=== PATIENT | male | born 1950 | race Caucasian/White ===

== ENCOUNTER 2017-01-25 11:24 | Observation (INO) | payer MEDICARE, OTHER ==
[2017-01-19 16:42] LABS: BASOPHILS 0.4 %; BASOPHILS ABSOLUTE 0.03 10/3/uL (0.0-0.16); EOSINOPHILS 1.3 %; EOSINOPHILS ABSOLUTE 0.09 10/3/uL (0.0-0.53); HEMOGLOBIN 15.8 g/dL (13.6-17.8); IMMATURE GRANULOCYTES 0.3 %; IMMATURE GRANULOCYTES ABSOLUTE 0.02 10/3/uL (0.0-0.11); LYMPHOCYTES 34.4 %; LYMPHOCYTES ABSOLUTE 2.31 10/3/uL (0.67-4.30); MANUAL DIFF NO %; MEAN CORPUS HGB CONC 33.6 g/dL (32.0-36.0); MEAN CORPUSCULAR HEMOGLOB 30.4 pg (26.0-34.0); MEAN CORPUSCULAR VOLUME 90.6 fL (80-100); MEAN PLATELET VOLUME 9.7 fL (9.2-13.0); MONOCYTES 7.1 %; MONOCYTES ABSOLUTE 0.48 10/3/uL (0.21-1.20); NEUTROPHILS 56.5 %; NEUTROPHILS ABSOLUTE 3.79 10/3/uL (2.02-8.40); PLATELET COUNT 262 10/3/uL (150-400); RBC DISTRIBUTION WIDTH 12.9 % (12.0-16.0); RED CELL COUNT 5.19 10/6/uL (4.7-6.1); WHITE BLOOD CELLS 6.7 10/3/uL (4.5-10.5)
[2017-01-19 16:49] LABS: BUN (BLOOD UREA NITROGEN) 13 MG/DL (6-23); CALCIUM, SERUM 9.4 MG/DL (8.5-10.4); CHLORIDE, SERUM 105 MMOL/L (96-112); CREATININE 1.05 MG/DL (0.70-1.30); GFR AFRICAN AMERICAN 84 ML/MIN (>=60); GFR NON AFRICAN AMERICAN 73 ML/MIN (>=60); SODIUM, SERUM 141 MMOL/L (135-148)
[2017-01-19 16:50] LABS: CO2 (CARBON DIOXIDE) 31 MMOL/L (24-34); GLUCOSE, SERUM 94 MG/DL (60-99); POTASSIUM, SERUM 5.4 MMOL/L (3.5-5.3)
--- NOTE | ~2017-01-25 | CN ---
Consultation Report [address] [place]. [address] NAME: IRENE HACKETT JR : 46 STATUS : ADM IN PAT#: [id number] AGE: 66 ADM/REG DATE : 01/25/17 MR#: [id number] REPORT SERV DATE: 01/26/17 DICTATED BY: MELITA BUITRAGO DATE: 01/25/17 REPORT STATUS : Draft TRANSCRIBED BY: MODMaria Teresa DATE: 01/25/17 CONSULTATION DATE OF CONSULTATION: 01/25/2017 REASON FOR CONSULTATION: Consulted for blood pressure management and home medication. IDENTIFYING DATA: 1. PCP, Ramu Lujan M.D. 2. Case Finisher in the past, he states he has previously seen Dr. Warner, also Dr. Quesada, and Dr. Reinier Agudelo, who did a left heart catheterization April 2011. He no longer sees a rv service technician at present time. 3. GI, Chauncey Miller M.D. 4. Turn Down Worker, Titi Branch MD. HISTORY OF PRESENT ILLNESS: This is a pleasant 66-year-old male, who presents to Dr. Titi Branch for status post total thyroidectomy, parathyroid hormone testing intraoperatively with parathyroidectomy on 01/25/2017. The patient relates that he was cutting limbs and fell from a tree approximately a month ago, found himself in the ER as a result, had a CT scan, to which they found that he had thyroid nodules. The patient has a history of CVA with TIA in 2005 which he has no residuals. He has a history of hypertension, obstructive sleep apnea for which he uses CPAP, colon cancer in 2001, and a thyroid nodule for which he is status post a thyroidectomy. We have been consulted to help manage with his medications from home and blood pressure. The patient has noted very few medications, and he is having difficulty financially obtaining medications that are ordered. The patient's history was obtained through careful interview with the patient coupled with review of [employer] and [employer]. PAST MEDICAL HISTORY: 1. CVA/TIA in 2005. 2. Wears glasses. 3. Hypertension. 4. Obstructive sleep apnea on CPAP. 5. Arthritis. 6. Diverticulitis. 7. Polyps. 8. Colon cancer in 2001. 9. Enlarged prostate. 10.Depression. 11.Thyroid nodules. Consultation Report [address] [place]. [address] NAME: IRENE HACKETT JR : 46 STATUS : ADM IN PAT#: [id number] AGE: 66 ADM/REG DATE : 01/25/17 MR#: [id number] REPORT SERV DATE: 01/26/17 DICTATED BY: MELITA BUITRAGO DATE: 01/25/17 REPORT STATUS : Draft TRANSCRIBED BY: MODL DATE: 01/25/17 12.Elevated cholesterol. 13.States he has a previous problem with anesthesia with difficulty waking up. 14.Chest pain. HOME MEDICATION: 1. Benicar 20 mg p.o. every day at bedtime. 2. Pravachol 20 mg p.o. at bedtime. ALLERGIES: TO: 1. LIDOCAINE. 2. SIMVASTATIN. 3. PROCAINE. SOCIAL HISTORY: The patient is for 43 years, has three children, five grand children. Lives in a single-level home. No smoking. No alcohol or illicit drug use. FAMILY HISTORY: 1. Mother is in her 90s in an assisted living facility. She has dementia. 2. Brother had coronary artery disease and was status post CABG. 3. Father is , had throat cancer, was a heavy smoker and at age 5555 years old. 4. The patient has two brothers and three sisters. SURGICAL HISTORY: 1. Left arm fracture in the . 2. Fistulectomy 1997. 3. Shoulder and biceps tendon repair in February 2015 at [facility]. 4. Colonoscopy with polypectomy in 2001 and again colonoscopy in 2014. 5. L4-L5 fusion in 2012 at [facility]. 6. LHC/angio/LV-gram in April [address] Alxe Quesada was seeing him for cardiology at that time, with the procedure done by Dr. Reinier Agudelo, showed an EF of 60% with a normal test. REVIEW OF SYSTEMS: Review of systems are negative other than what is in HPI. The patient has no shortness of breath. No chest pain. No fever. No nausea or vomiting. No abdominal pain. Displays no confusion or agitation. PHYSICAL EXAMINATION: VITAL SIGNS: From today, blood pressure 159/84, respiratory rate 16, heart rate 93, temperature 97.5, O2 saturation 94% on 2 L nasal cannula. GENERAL: This is a very pleasant, 66-year-old male, who is resting in bed. He is in no acute distress. NEURO: His head is atraumatic. He is normocephalic. He is alert and oriented x3. His mood is pleasant and appropriate. NECK: Supple. Trachea is midline. No JVD noted. He has an ice pack to his mid neck at op Consultation Report [address] [place]. [address] NAME: IRENE HACKETT JR : 46 STATUS : ADM IN PAT#: [id number] AGE: 66 ADM/REG DATE : 01/25/17 MR#: [id number] REPORT SERV DATE: 01/26/17 DICTATED BY: MELITA BUITRAGO DATE: 01/25/17 REPORT STATUS : Draft TRANSCRIBED BY: RUPINDER DATE: 01/25/17 site area. EENT: His sclerae are nonicteric. Pupils are equal, reactive to light. Nares are patent. Mucous membranes are moist. Tongue is midline without deviation. Soft palate rises equally with phonation. CHEST: No pain with palpation. LUNGS: Clear to auscultation bilaterally. He has normal respiratory effort. He has no increased work of breathing with conversation. CARDIOVASCULAR: S1, S2. No obvious murmurs, rubs, or gallops. Rhythm per auscultation is regular rate at 92. ABDOMEN: Soft, nontender. Active bowel sounds. No palpable organomegaly. Last bowel movement was on 01/25/2017. EXTREMITIES: Normal distal pulses. No calf tenderness. No edema noted. He has SCDs in place for DVT prophylaxis. SKIN: Warm and dry. No unusual rashes or lesions. Normal color and turgor. PSYCH: The patient is pleasant, cooperative, appropriate mood and affect. SURGICAL WOUND SITE: Dressing at mid neck is clean, dry, and intact with ice pack in place. LABORATORY DATA: Sodium 140, potassium 3.8, chloride 106, BUN 11, creatinine 0.82, GFR 105, glucose 100, calcium 8.8. White blood cell 6.7, hemoglobin 15.8, hematocrit 47.0, and platelets 262. The patient had an EKG on 01/19/2017 that displayed normal sinus rhythm with a rate of 69 and a normal EKG. ASSESSMENT AND PLAN: 1. Hypertension. We are aware. The patient does have a history of TIAs and CVA in the past in 2005 but he displays no residual problems. He quit his medications for blood pressure approximately two months ago due to the cost. He states he lost his supplemental insurance. We will continue his Benicar while he is in hospitalization and add p.r.n. hydralazine for systolic blood pressure greater than 160. We will initiate telemetry overnight. 2. Obstructive sleep apnea. Aware. The patient does wear a CPAP at home at night. We will continue his home CPAP at bedtime. We will do continuous O2 saturation monitoring while he is in the hospital. 3. Hypercholesterolemia. Aware. We will continue his Pravachol which is his home medication while he is in hospitalization. 4. Labs; CMP, ionized calcium, PTH, calcium, magnesium, phosphorus, CBC in the a.m. We will initiate a Case Management consult regarding financial help obtaining home medications for blood pressure, and we will ask the a.m. team to re-evaluate medications that are more affordable to actually send the patient home on until he sees his PCP Dr. Ramu Lujan. The hospitalist group would like to thank you for this consultation, and please let us know if we can be of any further assistance. Consultation Report [address] [address] NAME: IRENE HACKETT JR : 46 STATUS : ADM IN [facility]#: [id number] AGE: 66 ADM/REG DATE : 01/25/17 MR#: [id number] REPORT SERV DATE: 01/26/17 DICTATED BY: MELITA BUITRAGO DATE: 01/25/17 REPORT STATUS : Draft TRANSCRIBED BY: RUPINDER DATE: 01/25/17 VIANCA Melita Buitrago NP / [id number] CC: MD Ramu Briggs Jr., M.D.
--- NOTE | ~2017-01-25 | OP ---
Record Of Operation [facility] [address] [place]. [address] NAME: IRENE HACKETT JR : 46 STATUS : ADM IN [facility]#: [id number] AGE: 66 ADM/REG DATE : 01/25/17 MR#: [id number] REPORT SERV DATE: 01/25/17 DICTATED BY: ARIELA LIVE DATE: 01/25/17 REPORT STATUS : Draft TRANSCRIBED BY: MODMaria Teresa DATE: 01/25/17 DATE OF PROCEDURE: 01/25/2017 SERVICE: Otolaryngology. PREOPERATIVE DIAGNOSIS: Large multinodular substernal goiter. POSTOPERATIVE DIAGNOSIS: Large multinodular substernal goiter, four-gland parathyroid hyperplasia. PROCEDURES: 1. Total thyroidectomy, substernal through a cervical approach. 2. Four-gland parathyroid exploration with 2-1/2 gland excision. ORTHOTIST: Jordan Mcguire MD COMPLICATIONS: None. SPECIMENS: 1. Left hemithyroid and isthmus. 2. Left superior parathyroid gland. 3. Right hemithyroid. 4. Right partial superior parathyroid. 5. Right inferior parathyroid adenectomy. 6. Completion left superior parathyroidectomy. STATEMENT OF FINDINGS: The patient's recurrent laryngeal nerves were intact on both sides and stimulated at the end of the case. The parathyroid glands were grossly abnormal in three of the four explored glands. They were sent for frozen pathology, which revealed parathyroid tissue. The size of the gland was a three to four times the normal expected size of a parathyroid gland. They were normal and soft in appearance and did not have an adenomatous appearance. The pathologist, Dr. Palmer agreed that his pathologic diagnosis could be consistent with parathyroid hyperplasia or adenoma, however, given the clinical scenario, favored hyperplasia. STATEMENT OF MEDICAL NECESSITY: This is a 66-year-old male referred to me for symptomatic thyroid goiter. The patient was having difficulty with swallowing causing pressure in his neck. He had grossly enlarged thyroid gland with multiple suspicious nodules. I recommended total thyroidectomy. The patient had not been diagnosed with hypercalcemia, in fact, his preoperative calcemia was in the normal range, although slightly elevated. There was no reason to draw PTH other than the preop PTH that we did before the surgery, which came back at over 100, I believe it was 112. An ionized calcium drawn during the case was 4.5, which was in the normal range. The postoperative PTH came down to 89. STATEMENT OF OPERATION: The patient was brought to the operating room in supine position and transferred over to the operating table. All pressure points were padded and general Record Of Operation [facility] [address] [facility] [place]. [address] NAME: IRENE HACKETT JR : 46 STATUS : ADM IN PAT#: [id number] AGE: 66 ADM/REG DATE : 01/25/17 MR#: [id number] REPORT SERV DATE: 01/25/17 DICTATED BY: ARIELA LIVE DATE: 01/25/17 REPORT STATUS : Draft TRANSCRIBED BY: RUPINDER DATE: 01/25/17 endotracheal anesthesia was established with a nerve integrity monitoring endotracheal tube. The patient's neck was placed in slight extension with a shoulder roll. The NIM monitoring system was hooked up and found to be in correct working order. A midline incision was marked across the neck with a marking pen. It was then injected with 6 mL of 1% lidocaine with epinephrine. He was then prepped and draped in usual fashion. A #15 blade was then used to incise through the platysma muscle. Hammond retraction hooks were inserted and affixed to the drapes for traction of the skin. The midline raphe was developed with a baby Metzenbaum scissors and Bovie cautery up to the thyroid notch down to the sternal notch. The strap muscles on the left were retracted. The gland was obviously very enlarged, immediately apparent. Using Kittner dissectors, it was gently and easily from the strap muscles in the base of the neck. I started first by releasing the upper pole by dividing the fibrovascular attachments using a Dumont dissector and Harmonic scalpel. I gently anteriorized the gland. When I got to the inferior pole, found a very large component inside the chest. We were actually able to see the upper lungs as the fat overlying it inflating and deflating as we were in the thorax. I the strap muscles partially with the Harmonic scalpel. This allowed me to deliver the gland into the wound. I then identified the recurrent laryngeal nerve. In that process, I noted a grossly enlarged superior parathyroid gland. It had the appearance of a parathyroid gland, it did not appear hard or nodular, but was grossly enlarged. I placed a clip on it and bisected the top third of it off and sent for pathologic analysis. I then completed the thyroidectomy. I did not find an inferior parathyroid gland on the left. I did explore briefly into the fat, but it was not evident. I bisected the thyroid gland at the isthmus and sent it for permanent evaluation. Then repeated the process on the right-hand side. I began by freeing up the right upper pole in the same fashion generally anteriorizing the gland with blunt and careful dissection using Dumont and Harmonic scalpel. Again, once this gland was freed, the inferior parathyroid gland was grossly enlarged. It almost appeared to be anthracotic lymph node. I dissected it free and out of the neck and sent it for pathologic analysis. The superior gland was also grossly enlarged. The three glands that I was able to find were all roughly the same size and character. I had Dr. Jordan Mcguire, a very experienced thyroid surgery, present with me and he agreed that these were grossly enlarged. At this point, I decided to send the top third of the right superior along with the total inferior gland all confirming parathyroid tissue. At this time, I had gotten back the ionized calcium, which was in the high normal range. I found the recurrent laryngeal nerve and preserved it on the right side, completed the thyroidectomy, and inspected the gland on the back table and sent it off for permanent analysis. At this point, I was faced with the likely diagnosis of four-gland hyperplasia. I had explored thoroughly all the glands that I removed. The complete right inferior, half of the right superior, and the entire left superior, I explored and did not find a good candidate for the left inferior. My post excision PTH had come down from 112 to 89. Because the patient had not had a previous diagnosis, this was not necessarily symptomatic or hypercalcemic. I decided to be conservative and not to do any more aggressive resection of the glands. I irrigated the neck thoroughly on both sides and placed Fibrillar gauze in the superior and inferior gutters. I then closed the transected strap muscles using interrupted 3-0 Vicryl sutures. Once this was completed, I closed the fascia overlying the strap muscles in the midline leaving a substantial inferior opening, then closed the platysmal layer with buried 4-0 Vicryl sutures, and the subcutaneous deep dermal layer with 4-0 Vicryl sutures. Finally, I closed the skin with running 5-0 Monocryl sutures. The skin was then wet and dried with Record Of Operation [place] [address] [place]. [address] NAME: IRENE HACKETT JR : 46 STATUS : ADM IN PAT#: [id number] AGE: 66 ADM/REG DATE : 01/25/17 MR#: [id number] REPORT SERV DATE: 01/25/17 DICTATED BY: ARIELA LIVE DATE: 01/25/17 REPORT STATUS : Draft TRANSCRIBED BY: MODL DATE: 01/25/17 warm saline, and lap sponges, Steri-Strips cut in thirds were applied following the covering the skin with Mastisol. This concluded the case. The patient was turned over to Anesthesia, where he awoke, was extubated, and transferred to the PACU in stable condition. PS/RUPINDER Ariela Live MD / [id number] CC: MD Ramu Briggs Jr., M.D.
[~2017-01-25 11:24] MED LIST: BENICAR20 PO; BENICAR40 PO; CHOLESTEROL; CHOLESTEROL OR; FINASTERIDE; FLEX PO; FLOMAX4 PO; IBU-200200 MG PO; IBUPROFEN; LIDODERM T; MOBIC15 MG PO; NAP250 PO; PEP20 PO; PERCOCET1 TA4 PO; PRAVAC PO
[2017-01-25 13:05] LABS: BUN (BLOOD UREA NITROGEN) 11 MG/DL (6-23); CALCIUM, SERUM 8.8 MG/DL (8.5-10.4); CHLORIDE, SERUM 106 MMOL/L (96-112); CO2 (CARBON DIOXIDE) 27 MMOL/L (24-34); CREATININE 0.82 MG/DL (0.70-1.30); GFR AFRICAN AMERICAN 105 ML/MIN (>=60); GFR NON AFRICAN AMERICAN 91 ML/MIN (>=60); GLUCOSE, SERUM 100 MG/DL (60-99); POTASSIUM, SERUM 3.8 MMOL/L (3.5-5.3); SODIUM, SERUM 140 MMOL/L (135-148)
[2017-01-25 13:45] LABS: PTH (INTRAOPERATIVE) 110.2 PG/ML (10.0-65.0); PTH TAT 0 Hrs 00 Mins
[2017-01-25 15:53] LABS: PTH (INTRAOPERATIVE) 89.1 PG/ML (10.0-65.0); PTH TAT 0 Hrs 00 Mins
[2017-01-26 06:59] LABS: BASOPHILS 0.1 %; BASOPHILS ABSOLUTE 0.01 10/3/uL (0.0-0.16); EOSINOPHILS 0 %; HEMATOCRIT 44.7 % (40.0-51.0); HEMOGLOBIN 15.2 g/dL (13.6-17.8); IMMATURE GRANULOCYTES 0.3 %; IMMATURE GRANULOCYTES ABSOLUTE 0.04 10/3/uL (0.0-0.11); LYMPHOCYTES 14.3 %; MEAN CORPUSCULAR VOLUME 88.2 fL (80-100); MEAN PLATELET VOLUME 9.4 fL (9.2-13.0); MONOCYTES 8.7 %; MONOCYTES ABSOLUTE 1.22 10/3/uL (0.21-1.20); NEUTROPHILS 76.6 %; NEUTROPHILS ABSOLUTE 10.68 10/3/uL (2.02-8.40); PLATELET COUNT 250 10/3/uL (150-400); RED CELL COUNT 5.07 10/6/uL (4.7-6.1)
[2017-01-26 07:00] LABS: MANUAL DIFF NO %
[2017-01-26 07:11] LABS: ALBUMIN 3.6 G/DL (3.5-5.0); ALKALINE PHOSPHATASE 89 U/L (45-117); BUN (BLOOD UREA NITROGEN) 11 MG/DL (6-23); CALCIUM, SERUM 8.5 MG/DL (8.5-10.4); CHLORIDE, SERUM 101 MMOL/L (96-112); CO2 (CARBON DIOXIDE) 27 MMOL/L (24-34); CREATININE 1.08 MG/DL (0.70-1.30); GFR AFRICAN AMERICAN 81 ML/MIN (>=60); GFR NON AFRICAN AMERICAN 70 ML/MIN (>=60); GLOBULIN 3.6 G/DL (2.5-4.1); GLUCOSE, SERUM 113 MG/DL (60-99); PHOSPHORUS, SERUM 3.8 MG/DL (2.5-4.5); SGPT(ALT) 20 U/L (5-65); SODIUM, SERUM 140 MMOL/L (135-148); TOTAL BILIRUBIN 0.8 MG/DL (0-1.2); TOTAL PROTEIN 7.2 G/DL (6.0-8.5)
[2017-01-26 07:12] LABS: POTASSIUM, SERUM 4.1 MMOL/L (3.5-5.3); SGOT(AST) 20 U/L (5-40)
[2017-01-26] MEDS ORDERED: NORCO1 TA1 PO (09:41)
[2017-01-26] MEDS ORDERED: PRAVAC PO (13:17)
[2017-01-26] MEDS ORDERED: PRIN20 PO (13:17)
== END 2017-01-26 14:38 | disposition home or self-care (01) ==
LOC: SDC 11:24 → 4SO 18:37
PROVIDERS: Otolaryngology
PROC: 0GTK0ZZ Resection of Thyroid Gland, Open Approach (ICD-10-PCS; principal; 2017-01-25 12:45)
PROC: 0GBQ0ZZ Excision of Multiple Parathyroid Glands, Open Approach (ICD-10-PCS; 2017-01-25 12:45)
DX: C73 Malignant neoplasm of thyroid gland (principal); I10 Essential (primary) hypertension; G47.33 Obstructive sleep apnea (adult) (pediatric); M19.90 Unspecified osteoarthritis, unspecified site; F32.9 Major depressive disorder, single episode, unspecified; E78.5 Hyperlipidemia, unspecified; E78.00 Pure hypercholesterolemia, unspecified; Z85.038 Personal history of other malignant neoplasm of large intestine; Z88.6 Allergy status to analgesic agent; Z86.73 Personal history of transient ischemic attack (TIA), and cerebral infarction without residual deficits; Z79.899 Other long term (current) drug therapy; Z99.81 Dependence on supplemental oxygen; Z86.010 Personal history of colon polyps; Z88.8 Allergy status to other drugs, medicaments and biological substances; Z98.890 Other specified postprocedural states
CPT/HCPCS: 36415; 80048; 80053; 82330; 83735; 83970; 84100; 85025; 88305; 88307; 88331; 93005; A9270-GY; G0378; J0690; J2250; J2270; J2405; J2710; J3010